=== PATIENT | male | born 1965 | race Caucasian/White ===

== ENCOUNTER → 2020-01-20 | Outpatient (CLI) | payer OTHER ==
[~2020-01-20] MED LIST: ALBU8.5H8 INH; AMLO10TA8 PO; BUPR750F3 PO; CHOL10003 PO; DESIPRAMINE PO; EPI; FEXO180T72 PO; FLUT1AER INH; FLUT9.9S NS; FOLI0.8T2 PO; HYDR-3622 PO; INUL1TAB4 PO; Iron PO; LEVO137T3 PO; LISI-170 PO; MELO15TA24 PO; METF500T17 PO; NAPH15DR4 EACHEYE; OMEG100023 PO; TEMA15CA PO; TIZA4TAB2 PO; TRIA15CR53 TD; Vitamin E PO; hydrocortisone PO; lidocaine patch TD; potassium citrate PO; testosterone TD
[2020-01-20 10:06] LABS: ALANINE AMINOTRANSFERASE 58 U/L (12-78); ALBUMIN 4.2 g/dL (3.4-5.0); ANION GAP 6 mmol/L (5-15); CALCIUM 9.4 mg/dL (8.5-10.1); CHLORIDE 109 mmol/L (98-107); CREATININE 1.28 mg/dL (0.7-1.3)
[2020-01-20 10:08] LABS: ALKALINE PHOSPHATASE 35 U/L (45-117)
== END | disposition home or self-care (01) ==
LOC: STAR 08:33
PROVIDERS: ATTEND Surgery
DX: Z01.818 Encounter for other preprocedural examination (principal); Z20.828 Contact with and (suspected) exposure to other viral communicable diseases; K42.9 Umbilical hernia without obstruction or gangrene
CPT/HCPCS: 36415; 80053; 87635; 93005

== ENCOUNTER 2020-01-24 08:52 | Day surgery (SDC) | payer OTHER ==
[~2020-01-24] VITALS: Ht 171.4 cm; Wt 95.9 kg
[2020-01-24] MEDS ORDERED: LACTATED RINGERS 1,000 ML IV SCH (09:26)
[2020-01-24] MEDS ORDERED: CHLORHEXIDINE 15 ML UDC MM ONE (09:30)
[2020-01-24] MEDS ORDERED: BUPIVACAINE/PF 0.25% ONE (10:38)
[2020-01-24] MEDS ORDERED: EPINEPHRINE 1 MG/ML, 1ML ONE (10:39)
[2020-01-24] MEDS ORDERED: HYDROCORTISONE 100 MG INJ. ONE (11:27)
[2020-01-24] MEDS ORDERED: MIDAZOLAM 1 MG/ML, 2ML ONE (11:32)
[2020-01-24] MEDS ORDERED: FENTANYL PF 250 MCG/5ML ONE (11:32)
[2020-01-24] MEDS ORDERED: LIDOCAINE-MPF 2% ,5ML ONE (11:38)
[2020-01-24] MEDS ORDERED: ROCURONIUM 10MG/ML,5ML ONE (11:38)
[2020-01-24] MEDS ORDERED: LIDOCAINE 4%, 4 ML SYR/CANN TP ONE (11:38)
[2020-01-24] MEDS ORDERED: hydrALAzine 20 MG/ML, 1ML IV PRN (12:00)
[2020-01-24] MEDS ORDERED: HYDROmorphone 1 MG/ML, 1ML INJ IVPush PRN (12:00)
[2020-01-24] MEDS ORDERED: PROMETHAZINE 25 MG/ML, 1ML IVPush PRN (12:00)
[2020-01-24] MEDS ORDERED: MEPERIDINE/PF 25MG/0.5ML IVPush PRN (12:00)
[2020-01-24] MEDS ORDERED: PROMETHAZINE 25 MG SUPP PR PRN (12:00)
[2020-01-24] MEDS ORDERED: OXYcodone 5 MG/5 ML ORAL.SOL UDC PO PRN (12:00)
[2020-01-24] MEDS ORDERED: LABETALOL 5MG/ML, 20ML IV PRN (12:00)
[2020-01-24] MEDS ORDERED: ONDANSETRON 2MG/ML, 2ML IVPush PRN (12:00)
[2020-01-24] MEDS ORDERED: LORazepam 2 MG/ML, 1ML IVPush PRN (12:00)
[2020-01-24] MEDS ORDERED: ACETAMINOPHEN 325 MG TABLET PO PRN (12:00)
[2020-01-24] MEDS ORDERED: BUPIVACAINE/PF-EPI 0.25% 1:200K INFIL ONE (12:14)
[2020-01-24] MEDS ORDERED: DEXAMETHASONE 4 MG/ML, 1ML ONE (13:08)
[2020-01-24] MEDS ORDERED: CEFAZOLIN 1,000 MG ONE (13:08)
[2020-01-24] MEDS ORDERED: SUCCINYLCHOLINE 20 MG/ML, 10ML ONE (13:08)
[2020-01-24] MEDS ORDERED: GLYCOPYRROLATE 0.2MG/1ML, 5ML ONE (13:08)
[2020-01-24] MEDS ORDERED: NEOSTIGMINE 1 MG/ML, 10ML ONE (13:08)
[2020-01-24] MEDS ORDERED: PROPOFOL 10 MG/ML, 20ML ONE (13:08)
[2020-01-24] MEDS ORDERED: ONDANSETRON 2MG/ML, 2ML ONE (13:08)
[2020-01-24] MEDS ORDERED: FENTANYL PF 100 MCG/2ML ONE ×2 (13:27→13:43)
[2020-01-24] MEDS: FENTANYL PF 100 MCG/2ML IV PRN ×5 (13:30→13:56)
[2020-01-24] MEDS ORDERED: ACETAMINOPHEN 650 MG/20.3 ML UDC ONE (13:38)
[2020-01-24] MEDS ORDERED: OXYcodone 5 MG/5 ML ORAL.SOL UDC ONE (13:38)
[2020-01-24] MEDS ORDERED: MEPERIDINE/PF 25MG/ML,1ML ONE (13:57)
[2020-01-24] MEDS ORDERED: LORazepam 2 MG/ML, 1ML ONE (13:58)
[2020-01-24] MEDS ORDERED: KETOROLAC 30 MG/1 ML ONE (14:02)
[2020-01-24] MEDS ORDERED: KETOROLAC 30 MG/1 ML IVPush ONE (14:30)
[2020-01-24] MEDS ORDERED: METHOCARBAMOL 1,000 MG in DEXTROSE 5% 100 ML IV ONE (14:30)
== END 2020-01-24 18:30 | disposition home or self-care (01) ==
LOC: OUT 08:52
PROVIDERS: ATTEND Surgery
DX: K40.20 Bilateral inguinal hernia, without obstruction or gangrene, not specified as recurrent (principal); K43.9 Ventral hernia without obstruction or gangrene; D17.6 Benign lipomatous neoplasm of spermatic cord; I10 Essential (primary) hypertension; E11.9 Type 2 diabetes mellitus without complications; E27.40 Unspecified adrenocortical insufficiency; E03.9 Hypothyroidism, unspecified; J45.909 Unspecified asthma, uncomplicated; Z79.84 Long term (current) use of oral hypoglycemic drugs; Z79.891 Long term (current) use of opiate analgesic; Z79.890 Hormone replacement therapy; Z79.899 Other long term (current) drug therapy; Z88.2 Allergy status to sulfonamides; Z91.040 Latex allergy status; Z91.018 Allergy to other foods; Z98.890 Other specified postprocedural states; Z82.49 Family history of ischemic heart disease and other diseases of the circulatory system; Z83.3 Family history of diabetes mellitus; Z80.42 Family history of malignant neoplasm of prostate; Z83.42 Family history of familial hypercholesterolemia
CPT/HCPCS: 49560; 49568; 49650; 82962; C1727; C1781; J0171; J0330; J0690; J1100; J1720; J1885; J2175; J2250; J2405; J2704; J2710; J2800; J3010; J3490; J7120